=== PATIENT | male | born 1995 | race Two or more races ===

== ENCOUNTER 2022-05-27 19:55 | Emergency (ER) | payer OTHER ==
[~2022-05-27] VITALS: Ht 165.1 cm; Wt 54.4 kg
== END 2022-05-28 12:57 | disposition home or self-care (01) ==
LOC: ER 19:55
DX: K29.70 Gastritis, unspecified, without bleeding (principal); Z91.013 Allergy to seafood; Z88.6 Allergy status to analgesic agent